=== PATIENT | female | born 1990 | race Caucasian/White ===

== ENCOUNTER 2022-04-02 20:18 | Emergency (ER) | payer MEDICAID ==
[~2022-04-02] VITALS: Ht 157.5 cm; Wt 95.5 kg
[2022-04-02 20:23] VITALS: BP 202/131
== END 2022-04-02 21:50 | disposition left against medical advice (07) ==
LOC: ER 20:19
DX: R22.0 Localized swelling, mass and lump, head (principal); Z53.21 Procedure and treatment not carried out due to patient leaving prior to being seen by health care provider

== ENCOUNTER 2023-04-24 22:39 | Emergency (ER) | payer MEDICAID ==
[~2023-04-24] VITALS: Ht 157.5 cm; Wt 95.5 kg
[2023-04-24 22:54] VITALS: BP 199/135
== END 2023-04-25 01:23 | disposition left against medical advice (07) ==
LOC: ER 22:40
DX: L02.413 Cutaneous abscess of right upper limb (principal); M79.601 Pain in right arm; R07.0 Pain in throat; Z53.21 Procedure and treatment not carried out due to patient leaving prior to being seen by health care provider
CPT/HCPCS: 99281